=== PATIENT | female | born 1975 | race Caucasian/White ===

== ENCOUNTER 2016-11-24 11:49 | Emergency (ER) | payer BC, OTHER ==
[2016-11-24 12:10] VITALS: BP 139/79; PULSE 93; RESP 20; TEMP 97.9
[2016-11-24] MEDS ORDERED: PROPARACAINE 0.5% OPHTH DROPS 15 ML BTL BOTH EYES STA (12:19)
[2016-11-24] MEDS ORDERED: IBUPROFEN 800 MG TAB PO STA (12:21)
[2016-11-24] MEDS ORDERED: DIPH,PERTUS(ACELL)TETVAC-LF 0.5 ML VIAL IM ONE (12:22)
--- NOTE | 2016-11-24 12:27 | ED ---
Eye Problem HPI - General Chief complaint: Eye Problems Stated complaint: EYE PROBLEM BOTH EYES PAIN Time Seen by Provider: 11/24/16 12:12 Source: patient Mode of arrival: wheelchair Limitations: no limitations - History of Present Illness Initial comments: Patient is a 40-year-old white female presenting to the emergency department with complaints of bilateral eye pain and a scratchy feeling to both her eyes. Patient states she was wearing contacts yesterday and felt her eyes were dry. When she took her contacts out yesterday her eyes started watering and light irritated both her eyes. Patient denies purulent eye discharge. Patient denies sick contacts. Patient denies treatment prior to arrival. MD chief complaint: eye pain, eye redness, vision change Onset Description: gradual Location: both eyes Place: home If Injury: none Eye Symptoms: pain, blurry vision, photophobia (Consensual) Severity: moderate Severity scale (1-10): 5 If Pain, Quality: sharp Consistency: constant Context: contact lens use Associated Symptoms: none Treatments Prior to Arrival: none, removed contact lens - Related Data Patient Tetanus UTD: No Home Medications Medication Instructions Recorded Confirmed FLUoxetine HCL [PROzac] 20 mg PO DAILY 11/01/13 05/06/14 Previous Rx's Medication Instructions Recorded Tobramycin 0.3% Ophth Soln [Tobrex 2 drop BOTH EYES Q4H #1 bottle 11/24/16 0.3% Ophth Soln] Allergies Allergy/AdvReac Type Severity Reaction Status Date / Time No Known Allergies Allergy Verified 11/24/16 12:42 Review of Systems ROS Statement: Those systems with pertinent positive or pertinent negative responses have been documented in the HPI. ROS Other: All systems not noted in ROS Statement are negative. Past Medical History Past Medical History: Hypertension Additional Past Medical History / Comment(s): back pain, left leg numbness. History of Any Multi-Drug Resistant Organisms: None Reported Past Surgical History: Back Surgery, Bariatric Surgery Additional Past Surgical History / Comment(s): Back surgery 04/01/13. RY 07/05/13 Past Anesthesia/Blood Transfusion Reactions: No Reported Reaction Past Psychological History: Anxiety, Depression Smoking Status: Never smoker Past Alcohol Use History: None Reported, Rare Past Drug Use History: None Reported General Exam Limitations: no limitations General appearance: alert, anxious Head exam: Present: atraumatic, normocephalic, normal inspection Eye exam: Present: PERRL, EOMI, scleral icterus, conjunctival injection. Absent : nystagmus, periorbital swelling, periorbital tenderness Expanded Pupils: Regular, Round: Bilateral, Reactive: Bilateral Sclera/Conjunctival: Injection: Bilateral, Exudate: Bilateral (Watery) Visual acuity (R) = 20/: 0 (Patient's eyes are watery) Visual acuity (L) = 20/: 0 (Patient's eyes are watery) ENT exam: Present: normal exam, mucous membranes moist, TM's normal bilaterally , normal external ear exam Neck exam: Present: normal inspection, full ROM. Absent: tenderness, meningismus, lymphadenopathy Respiratory exam: Present: normal lung sounds bilaterally. Absent: respiratory distress, wheezes, rales, rhonchi, stridor Cardiovascular Exam: Present: regular rate, normal rhythm, normal heart sounds. Absent: systolic murmur, diastolic murmur, rubs, gallop, clicks GI/Abdominal exam: Present: soft, normal bowel sounds. Absent: distended, tenderness, guarding, rebound, rigid Back exam: Present: normal inspection, full ROM Neurological exam: Present: alert, oriented X3, normal gait, other (No focal deficits noted) Psychiatric exam: Present: normal affect, normal mood Skin exam: Present: warm, dry, intact, normal color. Absent: rash Course Vital Signs 11/24/16 12:08 Temperature 97.9 F Pulse Rate 93 Respiratory 20 Rate Blood Pressure 139/79 O2 Sat by Pulse 98 Oximetry Procedures - Procedures Initial comment: Procainamide 2 drops applied to bilateral eyes followed by fluorescent stain. Branch lamp with no evidence of obvious uptake. Patient did feel immediate relief of "scratchy feeling." Medical Decision Making - Medical Decision Making Bilateral eye photophobia and irritation relieved with procainamide suspect secondary to corneal abrasion and conjunctivitis. Patient placed on tobramycin eyedrops and instructed to follow-up with pharmacy informatics manager in next 24 hours. Patient instructed to return to the emergency department with any new or worsening symptoms. Patient agrees with treatment plan. Discharge instructions and return parameters reviewed. Disposition Clinical Impression: Corneal abrasion, Conjunctivitis Disposition: HOME SELF-CARE Condition: Good Instructions: Corneal Abrasion (ED) Additional Instructions: Continue tobramycin eyedrops every 4 hours 2 drops to each eye 3-5 days or as directed by pharmacy informatics manager. Continue Motrin for pain. Please follow-up with pharmacy informatics manager in next 24 hours. Please return to the emergency department with new or worsening symptoms. Prescriptions: Tobramycin 0.3% Ophth Soln [Tobrex 0.3% Ophth Soln] 2 drop BOTH EYES Q4H #1 bottle Referrals: Anson Genao DO [Primary Care Provider] - 1-2 days Diana Gill MD [STAFF PHYSICIAN] - 1-2 days Time of Disposition: 12:53
[2016-11-24] MEDS ORDERED: TOBRAMYCIN 0.3% OPHTH DROPS 5 ML BTL BOTH EYES SCH (12:45)
== END 2016-11-24 13:02 | disposition home or self-care (01) ==
LOC: EC 11:49
DX: S05.02XA Injury of conjunctiva and corneal abrasion without foreign body, left eye, initial encounter (principal); S05.01XA Injury of conjunctiva and corneal abrasion without foreign body, right eye, initial encounter; H10.9 Unspecified conjunctivitis; F32.9 Major depressive disorder, single episode, unspecified; F41.9 Anxiety disorder, unspecified; Z23 Encounter for immunization; Z79.899 Other long term (current) drug therapy; X58.XXXA Exposure to other specified factors, initial encounter; Y92.009 Unspecified place in unspecified non-institutional (private) residence as the place of occurrence of the external cause; Y93.89 Activity, other specified
CPT/HCPCS: 90471; 90715; 99283

== ENCOUNTER 2018-07-29 20:43 | Observation (INO) | payer BC, OTHER ==
[2018-07-29 21:16] LABS: Glucose,Whole Blood 100 mg/dL (75-99)
[2018-07-29] MEDS ORDERED: IOPAMIDOL-300 CONTRAST 30 ML VIAL (ORAL USE) PO PRN (22:24)
[2018-07-29] MEDS ORDERED: SODIUM CHLORIDE 0.9% 1,000 ML IV STA (22:24)
[2018-07-29] MEDS ORDERED: PANTOPRAZOLE 40 MG/10 ML VIAL IVP STA (22:24)
[2018-07-29] MEDS ORDERED: MORPHINE SULFATE 4 MG/ML SYRINGE IV STA (22:24)
[2018-07-29] MEDS ORDERED: SODIUM CHLORIDE 0.9% 500 ML 500 ML IV STA (22:24)
--- NOTE | 2018-07-29 22:27 | ED ---
General Adult HPI - General Chief complaint: Abdominal Pain Stated complaint: abd pain Time Seen by Provider: 07/29/18 22:08 Source: patient, family, RN notes reviewed Limitations: no limitations - History of Present Illness Initial comments: Patient is a pleasant 42-year-old female presenting to the emergency Department with complaints of abdominal discomfort. Symptoms started 2-3 days ago. Patient did have one episode of emesis 2 days ago. Patient has continued nausea. No constipation or diarrhea. Discomfort is diffuse. Discomfort did start in the right lower abdomen. No back pain. No history of chronic abdominal pain. Patient does have history of gastric bypass surgery approximately 3 years ago. - Related Data Home Medications Medication Instructions Recorded Confirmed FLUoxetine HCL [PROzac] 60 mg PO DAILY 11/01/13 07/29/18 Ergocalciferol (Vitamin D2) 50,000 unit PO TU 07/29/18 07/29/18 [Drisdol] Ferrous Sulfate [Feosol] 325 mg PO DAILY 07/29/18 07/29/18 Metoprolol Succinate [Toprol XL] 25 mg PO HS 07/29/18 07/29/18 Allergies Allergy/AdvReac Type Severity Reaction Status Date / Time No Known Allergies Allergy Verified 07/29/18 23:05 Review of Systems ROS Statement: Those systems with pertinent positive or pertinent negative responses have been documented in the HPI. ROS Other: All systems not noted in ROS Statement are negative. Constitutional: Denies: fever Eyes: Denies: eye pain ENT: Denies: ear pain Respiratory: Denies: cough Cardiovascular: Denies: chest pain Endocrine: Denies: fatigue Gastrointestinal: Reports: abdominal pain, nausea. Denies: diarrhea, constipation Genitourinary: Denies: dysuria Musculoskeletal: Denies: back pain Skin: Denies: rash Neurological: Denies: weakness Past Medical History Past Medical History: Atrial Fibrillation, Hypertension Additional Past Medical History / Comment(s): back pain, left leg numbness. hypoglycemia History of Any Multi-Drug Resistant Organisms: None Reported Past Surgical History: Back Surgery, Bariatric Surgery Additional Past Surgical History / Comment(s): Back surgery 04/01/13. RY 07/05/13 Past Anesthesia/Blood Transfusion Reactions: No Reported Reaction Past Psychological History: Anxiety, Depression Smoking Status: Never smoker Past Alcohol Use History: None Reported, Rare Past Drug Use History: None Reported General Exam Limitations: no limitations General appearance: alert, in no apparent distress Head exam: Present: atraumatic Eye exam: Present: normal appearance, PERRL ENT exam: Present: normal oropharynx Neck exam: Present: normal inspection Respiratory exam: Present: normal lung sounds bilaterally Cardiovascular Exam: Present: regular rate, normal rhythm Expanded Peripheral pulses: 2+: Dorsalis Pedis (R), Dorsalis Pedis (L) GI/Abdominal exam: Present: soft, tenderness (Moderate diffuse tenderness, the patient is somewhat more tender in the right lower quadrant), normal bowel sounds. Absent: distended, guarding, rebound, rigid, pulsatile mass Extremities exam: Present: normal inspection. Absent: pedal edema, calf tenderness Neurological exam: Present: alert Psychiatric exam: Present: normal affect, normal mood Skin exam: Present: normal color Course Vital Signs 07/29/18 20:54 Temperature 98.7 F Pulse Rate 93 Respiratory 20 Rate Blood Pressure 152/106 O2 Sat by Pulse 98 Oximetry EKG Findings - EKG Comments: EKG Findings:: Normal sinus rhythm at 80. GA 134. QRS 94. QT 404. QTC 465. Normal axis. Normal QRS. No acute ST change. Medical Decision Making - Medical Decision Making Patient reevaluated and resting comfortably in bed. Patient states symptoms have improved. Patient and family updated on results and plan. Case was discussed in detail with Dr. Nash, covering for Dr. Cuellar, who will admit with plans for surgery in the morning. He does recommend antibiotics. Patient does not meet sepsis criteria at this time. - Lab Data Result diagrams: 07/29/18 22:33 07/29/18 22:33 Lab Results 07/29/18 07/29/18 07/29/18 Range/Units 21:13 22:33 22:33 WBC 8.9 (3.8-10.6) k/uL RBC 4.79 (3.80-5.40) m/uL Hgb 12.9 (11.4-16.0) gm/dL Hct 40.0 (34.0-46.0) % MCV 83.4 (80.0-100.0) fL MCH 26.9 (25.0-35.0) pg MCHC 32.3 (31.0-37.0) g/dL RDW 15.4 (11.5-15.5) % Plt Count 421 (150-450) k/uL Neutrophils % 65 % Lymphocytes % 22 % Monocytes % 7 % Eosinophils % 3 % Basophils % 0 % Neutrophils # 5.8 (1.3-7.7) k/uL Lymphocytes # 2.0 (1.0-4.8) k/uL Monocytes # 0.7 (0-1.0) k/uL Eosinophils # 0.3 (0-0.7) k/uL Basophils # 0.0 (0-0.2) k/uL PT (9.0-12.0) sec INR (<1.2) APTT (22.0-30.0) sec Sodium 139 (137-145) mmol/L Potassium 4.3 (3.5-5.1) mmol/L Chloride 110 H (98-107) mmol/L Carbon Dioxide 21 L (22-30) mmol/L Anion Gap 8 mmol/L BUN 12 (7-17) mg/dL Creatinine 0.69 (0.52-1.04) mg/dL Est GFR (CKD-EPI)AfAm >90 (>60 ml/min/1.73 sqM) Est GFR (CKD-EPI)NonAf >90 (>60 ml/min/1.73 sqM) Glucose 99 (74-99) mg/dL POC Glucose (mg/dL) 100 H (75-99) mg/dL POC Glu Marriage Counselor ID [place] Calcium 9.4 (8.4-10.2) mg/dL Total Bilirubin 0.5 (0.2-1.3) mg/dL AST 20 (14-36) U/L ALT 25 (9-52) U/L Alkaline Phosphatase 61 (38-126) U/L Total Protein 6.8 (6.3-8.2) g/dL Albumin 3.8 (3.5-5.0) g/dL Amylase 39 (30-110) U/L Lipase 97 (23-300) U/L 07/29/18 Range/Units 22:33 WBC (3.8-10.6) k/uL RBC (3.80-5.40) m/uL Hgb (11.4-16.0) gm/dL Hct (34.0-46.0) % MCV (80.0-100.0) fL MCH (25.0-35.0) pg MCHC (31.0-37.0) g/dL RDW (11.5-15.5) % Plt Count (150-450) k/uL Neutrophils % % Lymphocytes % % Monocytes % % Eosinophils % % Basophils % % Neutrophils # (1.3-7.7) k/uL Lymphocytes # (1.0-4.8) k/uL Monocytes # (0-1.0) k/uL Eosinophils # (0-0.7) k/uL Basophils # (0-0.2) k/uL PT 9.9 (9.0-12.0) sec INR 0.9 (<1.2) APTT 24.8 (22.0-30.0) sec Sodium (137-145) mmol/L Potassium (3.5-5.1) mmol/L Chloride (98-107) mmol/L Carbon Dioxide (22-30) mmol/L Anion Gap mmol/L BUN (7-17) mg/dL Creatinine (0.52-1.04) mg/dL Est GFR (CKD-EPI)AfAm (>60 ml/min/1.73 sqM) Est GFR (CKD-EPI)NonAf (>60 ml/min/1.73 sqM) Glucose (74-99) mg/dL POC Glucose (mg/dL) (75-99) mg/dL POC Glu Marriage Counselor ID Calcium (8.4-10.2) mg/dL Total Bilirubin (0.2-1.3) mg/dL AST (14-36) U/L ALT (9-52) U/L Alkaline Phosphatase (38-126) U/L Total Protein (6.3-8.2) g/dL Albumin (3.5-5.0) g/dL Amylase (30-110) U/L Lipase (23-300) U/L - Radiology Data Radiology results: report reviewed (Computed tomography scan of the abdomen pelvis is positive for acute appendicitis, appendix measures 1 cm.) Disposition Clinical Impression: Acute appendicitis Disposition: ADMITTED IP TO THIS [facility] Is patient prescribed a controlled substance at d/c from ED?: No Referrals: Anson Genao DO [Primary Care Provider] - 1-2 days Decision Time: 00:02
[2018-07-29 22:48] LABS: Basophils % (A) 0 %; Eosinophils # (A) 0.3 k/uL (0-0.7); Eosinophils % (A) 3 %; HGB 12.9 gm/dL (11.4-16.0); Lymphocytes % (A) 22 %; MCH 26.9 pg (25.0-35.0); MCHC 32.3 g/dL (31.0-37.0); MCV 83.4 fL (80.0-100.0); Mean Platelet Volume 6.2; Monocytes # (A) 0.7 k/uL (0-1.0); Monocytes % (A) 7 %; Neutrophils # (A) 5.8 k/uL (1.3-7.7); Neutrophils % (A) 65 %; Platelet Count 421 k/uL (150-450); RBC 4.79 m/uL (3.80-5.40); RDW 15.4 % (11.5-15.5); WBC 8.9 k/uL (3.8-10.6)
[2018-07-29 22:57] LABS: INR 0.9 (<1.2); Partial Thromboplastin Time 24.8 sec (22.0-30.0); Prothrombin Time 9.9 sec (9.0-12.0)
[2018-07-29 23:01] LABS: ALT 25 U/L (9-52); AST 20 U/L (14-36); Albumin 3.8 g/dL (3.5-5.0); Alkaline Phosphatase 61 U/L (38-126); Amylase 39 U/L (30-110); Anion Gap 8 mmol/L; Blood Urea Nitrogen 12 mg/dL (7-17); Calcium 9.4 mg/dL (8.4-10.2); Carbon Dioxide 21 mmol/L (22-30); Chloride 110 mmol/L (98-107); Glucose 99 mg/dL (74-99); Lipase 97 U/L (23-300); Potassium 4.3 mmol/L (3.5-5.1); Sodium 139 mmol/L (137-145); Total Bilirubin 0.5 mg/dL (0.2-1.3); Total Protein 6.8 g/dL (6.3-8.2)
[2018-07-29] MEDS: ONDANSETRON 4 MG/2 ML VIAL IVP STA (23:06)
--- NOTE | 2018-07-29 23:49 | CT ---
EXAM: CT Abdomen and Pelvis With Intravenous Contrast CLINICAL HISTORY: ITS.REASON CT Reason: abdominal pain, bariatric protocol TECHNIQUE: Axial computed tomography images of the abdomen and pelvis with intravenous contrast. CTDI is 16 mGy and DLP is 916 mGy-cm. This CT exam was performed using one or more of the following dose reduction techniques: automated exposure control, adjustment of the mA and/or kV according to patient size, and/or use of iterative reconstruction technique. COMPARISON: No relevant prior studies available. FINDINGS: Lung bases: Unremarkable. No mass. No consolidation. ABDOMEN: Liver: Unremarkable. No mass. Gallbladder and bile ducts: No abnormal ductal dilation or stones. Pancreas: Unremarkable. No mass. No ductal dilation. Spleen: Unremarkable. No splenomegaly. Adrenals: Unremarkable. No mass. Kidneys and ureters: Unremarkable. No solid mass. No hydronephrosis. Stomach and bowel: No obstruction. No mucosal thickening. PELVIS: Appendix: Acute appendicitis. Appendix measures approximately 1 cm. Bladder: Unremarkable. No mass. Reproductive: Unremarkable as visualized. ABDOMEN and PELVIS: Intraperitoneal space: Unremarkable. No free air. No significant fluid collection. Bones/joints: No acute fracture. No dislocation. Soft tissues: Unremarkable. Vasculature: No abdominal aortic aneurysm. Lymph nodes: Unremarkable. No enlarged lymph nodes. IMPRESSION: Acute appendicitis. Appendix measures approximately 1 cm. <MYCVCSECTION> [employer] 07/29/18 23:55 Verify Receipt Verified receipt with LYNN Sheppard in the ER for Dr. Guido on 07/29 23:54 (-05:00)
[2018-07-30] MEDS ORDERED: PIPERACILLIN-TAZOBACTAM 3.375 GM in SODIUM CHLORIDE 0.9% 100 ML IVPB STA ×2
[2018-07-30] MEDS ORDERED: NALOXONE 0.4 MG/ML 1 ML VIAL IV PRN (00:02)
[2018-07-30] MEDS ORDERED: ONDANSETRON 4 MG/2 ML VIAL IVP PRN (00:02)
[2018-07-30] MEDS: SODIUM CHLORIDE 0.9% 1,000 ML IV SCH ×3 (00:14→18:02)
[2018-07-30] MEDS: MORPHINE SULFATE 4 MG/ML SYRINGE IV PRN ×3 (00:16→08:19)
[2018-07-30] MEDS ORDERED: ACETAMINOPHEN TAB 325 MG TAB PO STA (01:07)
[2018-07-30 01:14] LABS: Appearance,Urine Cloudy (Clear); Bilirubin,Urine Negative (Negative); Blood,Urine Large (Negative); Color,Urine Yellow; Glucose,Urine (UA) Negative (Negative); Ketones,Urine Negative (Negative); Leukocyte Esterase,Urine Small (Negative); Mucus,Urine Few /hpf; Nitrite,Urine Negative (Negative); PH, Urine 5.5 (5.0-8.0); Protein,Urine Trace (Negative); RBC,Urine >182 /hpf (0-5); Specific Gravity,Urine 1.018 (1.001-1.035); Squamous Epithelial Cell,Urine 3 /hpf (0-4); WBC,Urine 19 /hpf (0-5)
[2018-07-30] MEDS: PANTOPRAZOLE 40 MG/10 ML VIAL IV SCH (10:53)
[2018-07-30] MEDS: PIPERACILLIN-TAZOBACTAM 3.375 GM in SODIUM CHLORIDE 0.9% 100 ML IVPB SCH ×2 (10:53→18:02)
--- NOTE | 2018-07-30 11:28 | P.GSHP ---
<Yue Jara A - Last Filed: 07/30/18 11:23> History of Present Illness H&P Date: 07/30/18 Chief Complaint: abdominal pain CHIEF COMPLAINT: Abdominal pain HISTORY OF PRESENT ILLNESS: 42-year-old female who presented to the emergency room due to abdominal pain. Patient reports she began having right lower quadrant pain on Friday. She also reports an episode of vomiting on Friday but no further episodes of emesis since that time. She does report continued nausea. She states she waited a couple days at home to see if the pain would subside but the pain persisted and she decided to come to the emergency room for further evaluation. PAST MEDICAL HISTORY: See list. PAST SURGICAL HISTORY: See list. MEDICATIONS: See list. ALLERGIES: See list. SOCIAL HISTORY: No illicit drug use. REVIEW OF SYSTEMS: CONSTITUTIONAL: Denies fever or chills. HEENT: Denies blurred vision, vision changes, or eye pain. Denies hemoptysis ENDOCRINE: Denies heat or cold intolerance. CARDIOVASCULAR: Denies chest pain or pressure. RESPIRATORY: No shortness of breath. GASTROINTESTINAL: Reports right lower quadrant abdominal pain. Reports nausea. Reports episode of emesis. NEURO: Denies history of seizures. PSYCH: No depression or suicidal ideation HEMATOLOGIC: Denies bleeding disorders. LYMPHATIC: The patient denies any lumps and bumps around the neck. GENITOURINARY: Denies any blood in urine or increased urinary frequency. MUSCULOSKELETAL: Denies myalgias. Denies joint swelling. Denies decreased range of motion beyond patients baseline. SKIN: Denies pruitis. Denies rash. PHYSICAL EXAM: VITAL SIGNS: Currently stable. GENERAL: Well-developed in no acute distress. HEENT: No sclera icterus. Extraocular movements grossly intact. Moist buccal mucosa. Head is atraumatic, normocephalic. Hears conversational speech. No nasal drainage. NECK: Supple without lymphadenopathy. CHEST: Non-labored respirations and equal bilateral excursions. CARDIOVASCULAR: Regular rate with regular rhythm. Palpable 2+ radial pulses. ABDOMEN: Soft. Nondistended. Pain upon palpation of right lower quadrant. MUSCULOSKELETAL: No clubbing, cyanosis or edema. NEUROLOGIC: No focal or lateralizing signs. Cranial nerves II through XII grossly intact. PSYCH: Appropriate affect. Alert and oriented to person, place and time. SKIN: Well perfused. Good skin turgor. ASSESSMENT: 1. Right lower quadrant abdominal pain 2. Acute appendicitis PLAN: 1. Nothing by mouth 2. Continue Zosyn 3. Patient scheduled for laparoscopic appendectomy today with Dr. Carter Nurse practitioner note has been reviewed by physician. Signing provider agrees with the documented findings, assessment, and plan of care. Past Medical History Past Medical History: Atrial Fibrillation, Hypertension Additional Past Medical History / Comment(s): back pain, left leg numbness. hypoglycemia History of Any Multi-Drug Resistant Organisms: None Reported Past Surgical History: Back Surgery, Bariatric Surgery Additional Past Surgical History / Comment(s): Back surgery 04/01/13. RY 07/05/13 Past Anesthesia/Blood Transfusion Reactions: No Reported Reaction Past Psychological History: Anxiety, Depression Smoking Status: Never smoker Past Alcohol Use History: None Reported, Rare Past Drug Use History: None Reported - Past Family History Mother Family Medical History: Thyroid Disorder Father History Unknown: Yes Medications and Allergies Home Medications Medication Instructions Recorded Confirmed Type FLUoxetine HCL [PROzac] 60 mg PO DAILY 11/01/13 07/29/18 History Ergocalciferol (Vitamin D2) 50,000 unit PO TU 07/29/18 07/29/18 History [Drisdol] Ferrous Sulfate [Feosol] 325 mg PO DAILY 07/29/18 07/29/18 History Metoprolol Succinate [Toprol XL] 25 mg PO HS 07/29/18 07/29/18 History Allergies Allergy/AdvReac Type Severity Reaction Status Date / Time No Known Allergies Allergy Verified 07/29/18 23:05 Surgical - Exam Vital Signs Temp Pulse Resp BP Pulse Ox 98.7 F 93 20 152/106 98 07/29/18 20:54 07/29/18 20:54 07/29/18 20:54 07/29/18 20:54 07/29/18 20:54 Results - Labs 07/29/18 22:33 07/29/18 22:33 Abnormal Lab Results - Last 24 Hours (Table) 07/29/18 07/29/18 07/29/18 Range/Units 21:13 22:33 22:50 Chloride 110 H (98-107) mmol/L Carbon Dioxide 21 L (22-30) mmol/L POC Glucose (mg/dL) 100 H (75-99) mg/dL Plasma Lactic Acid Franklyn (0.7-2.0) mmol/L Urine Appearance Cloudy H (Clear) Urine Protein Trace H (Negative) Urine Blood Large H (Negative) Ur Leukocyte Esterase Small H (Negative) Urine RBC >182 H (0-5) /hpf Urine WBC 19 H (0-5) /hpf Urine Mucus Few H (None) /hpf 07/30/18 Range/Units 00:34 Chloride (98-107) mmol/L Carbon Dioxide (22-30) mmol/L POC Glucose (mg/dL) (75-99) mg/dL Plasma Lactic Acid Franklyn 0.6 L (0.7-2.0) mmol/L Urine Appearance (Clear) Urine Protein (Negative) Urine Blood (Negative) Ur Leukocyte Esterase (Negative) Urine RBC (0-5) /hpf Urine WBC (0-5) /hpf Urine Mucus (None) /hpf Diabetes panel 07/29/18 Range/Units 22:33 Sodium 139 (137-145) mmol/L Potassium 4.3 (3.5-5.1) mmol/L Chloride 110 H (98-107) mmol/L Carbon Dioxide 21 L (22-30) mmol/L BUN 12 (7-17) mg/dL Creatinine 0.69 (0.52-1.04) mg/dL Glucose 99 (74-99) mg/dL Calcium 9.4 (8.4-10.2) mg/dL AST 20 (14-36) U/L ALT 25 (9-52) U/L Alkaline Phosphatase 61 (38-126) U/L Total Protein 6.8 (6.3-8.2) g/dL Albumin 3.8 (3.5-5.0) g/dL Calcium panel 07/29/18 Range/Units 22:33 Calcium 9.4 (8.4-10.2) mg/dL Albumin 3.8 (3.5-5.0) g/dL Pituitary panel 07/29/18 Range/Units 22:33 Sodium 139 (137-145) mmol/L Potassium 4.3 (3.5-5.1) mmol/L Chloride 110 H (98-107) mmol/L Carbon Dioxide 21 L (22-30) mmol/L BUN 12 (7-17) mg/dL Creatinine 0.69 (0.52-1.04) mg/dL Glucose 99 (74-99) mg/dL Calcium 9.4 (8.4-10.2) mg/dL Adrenal panel 07/29/18 Range/Units 22:33 Sodium 139 (137-145) mmol/L Potassium 4.3 (3.5-5.1) mmol/L Chloride 110 H (98-107) mmol/L Carbon Dioxide 21 L (22-30) mmol/L BUN 12 (7-17) mg/dL Creatinine 0.69 (0.52-1.04) mg/dL Glucose 99 (74-99) mg/dL Calcium 9.4 (8.4-10.2) mg/dL Total Bilirubin 0.5 (0.2-1.3) mg/dL AST 20 (14-36) U/L ALT 25 (9-52) U/L Alkaline Phosphatase 61 (38-126) U/L Total Protein 6.8 (6.3-8.2) g/dL Albumin 3.8 (3.5-5.0) g/dL <Toni Carter - Last Filed: 07/30/18 12:06> History of Present Illness As above. Patient with three-day history of right lower quadrant pain. CAT scan reviewed and does show appendicitis. Patient still having mild tenderness right lower quadrant. We'll proceed with laparoscopic, possible open appendectomy. Risks of bleeding, infection, abscess, bladder and bowel injury, conversion to an open procedure reviewed. She understands and wishes to proceed. Surgical - Exam Vital Signs Temp Pulse Resp BP Pulse Ox 98.7 F 93 20 152/106 98 07/29/18 20:54 07/29/18 20:54 07/29/18 20:54 07/29/18 20:54 07/29/18 20:54 Results - Labs 07/29/18 22:33 07/29/18 22:33 Abnormal Lab Results - Last 24 Hours (Table) 07/29/18 07/29/18 07/29/18 Range/Units 21:13 22:33 22:50 Chloride 110 H (98-107) mmol/L Carbon Dioxide 21 L (22-30) mmol/L POC Glucose (mg/dL) 100 H (75-99) mg/dL Plasma Lactic Acid Franklyn (0.7-2.0) mmol/L Urine Appearance Cloudy H (Clear) Urine Protein Trace H (Negative) Urine Blood Large H (Negative) Ur Leukocyte Esterase Small H (Negative) Urine RBC >182 H (0-5) /hpf Urine WBC 19 H (0-5) /hpf Urine Mucus Few H (None) /hpf 07/30/18 Range/Units 00:34 Chloride (98-107) mmol/L Carbon Dioxide (22-30) mmol/L POC Glucose (mg/dL) (75-99) mg/dL Plasma Lactic Acid Franklyn 0.6 L (0.7-2.0) mmol/L Urine Appearance (Clear) Urine Protein (Negative) Urine Blood (Negative) Ur Leukocyte Esterase (Negative) Urine RBC (0-5) /hpf Urine WBC (0-5) /hpf Urine Mucus (None) /hpf Diabetes panel 07/29/18 Range/Units 22:33 Sodium 139 (137-145) mmol/L Potassium 4.3 (3.5-5.1) mmol/L Chloride 110 H (98-107) mmol/L Carbon Dioxide 21 L (22-30) mmol/L BUN 12 (7-17) mg/dL Creatinine 0.69 (0.52-1.04) mg/dL Glucose 99 (74-99) mg/dL Calcium 9.4 (8.4-10.2) mg/dL AST 20 (14-36) U/L ALT 25 (9-52) U/L Alkaline Phosphatase 61 (38-126) U/L Total Protein 6.8 (6.3-8.2) g/dL Albumin 3.8 (3.5-5.0) g/dL Calcium panel 07/29/18 Range/Units 22:33 Calcium 9.4 (8.4-10.2) mg/dL Albumin 3.8 (3.5-5.0) g/dL Pituitary panel 07/29/18 Range/Units 22:33 Sodium 139 (137-145) mmol/L Potassium 4.3 (3.5-5.1) mmol/L Chloride 110 H (98-107) mmol/L Carbon Dioxide 21 L (22-30) mmol/L BUN 12 (7-17) mg/dL Creatinine 0.69 (0.52-1.04) mg/dL Glucose 99 (74-99) mg/dL Calcium 9.4 (8.4-10.2) mg/dL Adrenal panel 07/29/18 Range/Units 22:33 Sodium 139 (137-145) mmol/L Potassium 4.3 (3.5-5.1) mmol/L Chloride 110 H (98-107) mmol/L Carbon Dioxide 21 L (22-30) mmol/L BUN 12 (7-17) mg/dL Creatinine 0.69 (0.52-1.04) mg/dL Glucose 99 (74-99) mg/dL Calcium 9.4 (8.4-10.2) mg/dL Total Bilirubin 0.5 (0.2-1.3) mg/dL AST 20 (14-36) U/L ALT 25 (9-52) U/L Alkaline Phosphatase 61 (38-126) U/L Total Protein 6.8 (6.3-8.2) g/dL Albumin 3.8 (3.5-5.0) g/dL
[2018-07-30] MEDS ORDERED: IV FLUID CONTINUATION 1,000 ML IV ONE (11:58)
[2018-07-30] MEDS ORDERED: HEPARIN SODIUM,PORCINE 5,000 UNIT/ML 1 ML VIAL SQ ONE (12:00)
[2018-07-30] MEDS: ONDANSETRON 4 MG/2 ML VIAL IVP STA (12:42)
[2018-07-30] MEDS ORDERED: fentaNYL (PF) 50 MCG/ML 2 ML AMP IV ONE (12:42)
[2018-07-30] MEDS ORDERED: DEXAMETHASONE SOD PHOS (MDV) 100 MG/10 ML VIAL IV ONE (12:42)
[2018-07-30] MEDS ORDERED: NEOSTIGMINE 1 MG/ML 10 ML VIAL ONE (13:11)
[2018-07-30] MEDS ORDERED: MIDAZOLAM 2 MG/2 ML VIAL ONE (13:11)
[2018-07-30] MEDS ORDERED: SUCCINYLCHOLINE CHLORIDE 100 MG/5 ML SYR IV ONE (13:11)
[2018-07-30] MEDS ORDERED: ROCURONIUM BROMIDE 10 MG/ML 10 ML VIAL IV ONE (13:11)
[2018-07-30] MEDS ORDERED: HYDROmorphone (PF) 1 MG/ML ONE (13:11)
[2018-07-30] MEDS ORDERED: GLYCOPYRROLATE 0.2 MG/ML 2 ML VIAL ONE (13:11)
[2018-07-30] MEDS ORDERED: fentaNYL (PF) 50 MCG/ML 2 ML AMP ONE (13:11)
[2018-07-30] MEDS ORDERED: PROPOFOL 10 MG/ML 20 ML VIAL IV ONE (13:11)
[2018-07-30] MEDS ORDERED: LIDOCAINE 1% INJ 10MG/ML (20 ML MDV) ONE (13:11)
[2018-07-30] MEDS ORDERED: KETOROLAC 30 MG/ML 1 ML VIAL ONE (13:11)
[2018-07-30] MEDS ORDERED: BUPIVACAIN-EPI 0.5%-1:200,000 30 ML VIAL SQ ONE (13:38)
[2018-07-30] MEDS ORDERED: LACTATED RINGERS 1,000 ML IV ONE (14:07)
[2018-07-30] MEDS ORDERED: HYDROcodone/APAP 5-325MG 1 EACH TAB PO PRN (14:13)
--- NOTE | 2018-07-30 14:15 | P.OP ---
Date of Procedure: 07/30/18 Procedure(s) Performed: PREOPERATIVE DIAGNOSIS: Acute appendicitis POSTOPERATIVE DIAGNOSIS: Same PROCEDURE: Laparoscopic appendectomy SURGEON: Raul EBL: Total ANESTHESIA: General COMPLICATIONS: None OPERATIVE PROCEDURE: The patient was brought and placed on the operating table in the supine position. The patient was placed under general anesthesia. The abdomen was prepped and draped in the usual sterile fashion. A small vertical infraumbilical incision was made. The fascia was retracted anteriorly with Anabel forceps. The Veress needle was advanced into the perineal cavity. The saline drop test was normal. Insufflation took place to 15 mmHg. A 5 mm trocar was then placed. An additional 5 mm suprapubic trocar was placed under direct visualization as well as a 12 mm left lower quadrant trocar under direct visualization. The appendix was inspected. It was acutely inflamed. The mesoappendix was dissected. The base of the appendix was divided using a linear 45 mm intestinal stapler. The mesentery itself was divided using the 12 mm clipper and the calderon load stapler. The area was then irrigated. No further purulence or bleeding was seen. The appendix was brought out of the peritoneal cavity through the left lower quadrant trocar site using an Endo Catch bag. The fascia at the 12 mm site was closed using a Yevgeniy-Royer 0 Vicryl stitch. The skin at all 3 sites was closed using 4-0 Monocryl sutures. Skin glue was then applied. DISPOSITION: Stable to recovery room
[2018-07-30] MEDS: HEPARIN SODIUM,PORCINE 5,000 UNIT/ML 1 ML VIAL SQ SCH (18:02)
[2018-07-30] MEDS: KETOROLAC 30 MG/ML 1 ML VIAL IVP SCH ×2 (18:02→23:59)
[2018-07-30] MEDS ORDERED: METOPROLOL SUCCINATE (ER) 25 MG TAB.ER.24H PO SCH (21:00)
[2018-07-30] MEDS: FLUoxetine HCL 20 MG CAP PO SCH (21:12)
[2018-07-31] MEDS: PIPERACILLIN-TAZOBACTAM 3.375 GM in SODIUM CHLORIDE 0.9% 100 ML IVPB SCH ×3 (00:11→17:10)
[2018-07-31] MEDS: SODIUM CHLORIDE 0.9% 1,000 ML IV SCH ×2 (01:20→08:43)
[2018-07-31] MEDS: KETOROLAC 30 MG/ML 1 ML VIAL IVP SCH ×2 (05:47→11:56)
[2018-07-31] MEDS: FLUoxetine HCL 20 MG CAP PO SCH (08:42)
[2018-07-31] MEDS: HEPARIN SODIUM,PORCINE 5,000 UNIT/ML 1 ML VIAL SQ SCH ×3 (08:43→17:09)
[2018-07-31] MEDS: PANTOPRAZOLE 40 MG/10 ML VIAL IV SCH (08:43)
[2018-07-31 14:27] VITALS: BP 101/64; PULSE 78; RESP 17; TEMP 98.1
--- NOTE | 2018-07-31 17:24 | P.DS ---
Providers Date of admission: 07/30/18 00:03 Expected date of discharge: 07/31/18 Attending physician: Toni Carter Primary care physician: Anson Genao [facility] Course: Patient was admitted with acute appendicitis. Underwent laparoscopic appendectomy yesterday afternoon. Doing well today. Pain is resolved. No fevers. She is hoping to go home today. Incisions are clean and dry. Will plan discharge today. Follow-up one week. Plan - Discharge Summary Discharge Rx Participant: Yes New Discharge Prescriptions: New Hydrocodone/Acetaminophen [[place] 5-325] 1 tab PO Q6HR PRN 3 Days #10 tab PRN Reason: Pain No Action FLUoxetine HCL [PROzac] 60 mg PO DAILY Metoprolol Succinate [Toprol XL] 25 mg PO HS Ferrous Sulfate [Feosol] 325 mg PO DAILY Ergocalciferol (Vitamin D2) [Drisdol] 50,000 unit PO Discharge Medication List FLUoxetine HCL [PROzac] 60 mg PO DAILY 11/01/13 [History] Ergocalciferol (Vitamin D2) [Drisdol] 50,000 unit PO TU 07/29/18 [History] Ferrous Sulfate [Feosol] 325 mg PO DAILY 07/29/18 [History] Metoprolol Succinate [Toprol XL] 25 mg PO HS 07/29/18 [History] Hydrocodone/Acetaminophen [[place] 5-325] 1 tab PO Q6HR PRN 3 Days #10 tab [Rx] Follow up Appointment(s)/Referral(s): Anson Genao DO [Primary Care Provider] - 1-2 days
== END 2018-07-31 18:31 | disposition home or self-care (01) ==
LOC: EC 20:43 → INTOOBSV 07-30 00:03 → 4SSUR 07-30 00:03
PROVIDERS: ADMIT Surgery; ATTEND Surgery
DX: K35.80 Unspecified acute appendicitis (principal); F32.9 Major depressive disorder, single episode, unspecified; F41.9 Anxiety disorder, unspecified; M54.9 Dorsalgia, unspecified; R20.0 Anesthesia of skin; I10 Essential (primary) hypertension; I48.91 Unspecified atrial fibrillation; Z79.899 Other long term (current) drug therapy; Z98.84 Bariatric surgery status
CPT/HCPCS: 96374; 96375; 99285; 44970; 36415 ×2; 93005; 81025 ×2; 88304; 80053; 82150; 83605; 83690; 85025; 85610; 85730; 81001; 87040; 74177; G0378 ×2; J2543 ×2; J2250; J2270 ×2; J1644 ×2; J2710; J2405 ×2; J2001; J3010; J1885 ×2; J1170; J1100; J0330; J2704; C9113 ×3; Q9967

== ENCOUNTER 2019-08-08 21:21 | Emergency (ER) | payer BC ==
[2019-08-08] MEDS ORDERED: SODIUM CHLORIDE 0.9% 1,000 ML IV STA (21:56)
[2019-08-08] MEDS ORDERED: KETOROLAC 30 MG/ML 1 ML VIAL IVP STA (21:56)
[2019-08-08] MEDS ORDERED: HYDROmorphone 1 MG/ML 1 ML SYRINGE IVP STA ×2 (21:56→23:32)
[2019-08-08] MEDS ORDERED: ONDANSETRON 4 MG/2 ML VIAL IVP STA (21:56)
[2019-08-08 22:58] LABS: Anisocytosis Slight; Basophils % (A) 1 %; Eosinophils # (A) 0.1 k/uL (0-0.7); Eosinophils % (A) 2 %; HCT 35.1 % (34.0-46.0); HGB 11.1 gm/dL (11.4-16.0); Hypochromasia Slight; Lymphocytes # (A) 1.7 k/uL (1.0-4.8); Lymphocytes % (A) 26 %; MCH 23.5 pg (25.0-35.0); MCHC 31.5 g/dL (31.0-37.0); MCV 74.6 fL (80.0-100.0); Microcytosis Slight; Monocytes # (A) 0.5 k/uL (0-1.0); Monocytes % (A) 7 %; Neutrophils # (A) 4.1 k/uL (1.3-7.7); Neutrophils % (A) 61 %; Platelet Count 445 k/uL (150-450); RBC 4.71 m/uL (3.80-5.40); RDW 16.9 % (11.5-15.5); WBC 6.7 k/uL (3.8-10.6)
[2019-08-08 23:04] LABS: ALT 14 U/L (4-34); AST 23 U/L (14-36); African American GFR (CKD) >90 (>60 ml/min/1.73 sqM); Albumin 3.8 g/dL (3.5-5.0); Alkaline Phosphatase 64 U/L (38-126); Amylase 40 U/L (30-110); Anion Gap 7 mmol/L; Blood Urea Nitrogen 8 mg/dL (7-17); Calcium 8.6 mg/dL (8.4-10.2); Carbon Dioxide 21 mmol/L (22-30); Chloride 110 mmol/L (98-107); Glucose 93 mg/dL (74-99); Non-African American GFR(CKD) >90 (>60 ml/min/1.73 sqM); Potassium 4.1 mmol/L (3.5-5.1); Sodium 138 mmol/L (137-145); Total Bilirubin 0.1 mg/dL (0.2-1.3); Total Protein 6.7 g/dL (6.3-8.2)
[2019-08-08 23:14] LABS: Appearance,Urine Cloudy (Clear); Bacteria,Urine Rare /hpf; Bilirubin,Urine Negative (Negative); Blood,Urine Large (Negative); Color,Urine Yellow; Glucose,Urine (UA) Negative (Negative); Ketones,Urine 1+ (Negative); Leukocyte Esterase,Urine Moderate (Negative); Mucus,Urine Many /hpf; Nitrite,Urine Negative (Negative); PH, Urine 5.5 (5.0-8.0); Protein,Urine 1+ (Negative); RBC,Urine >182 /hpf (0-5); Specific Gravity,Urine 1.031 (1.001-1.035); Squamous Epithelial Cell,Urine 3 /hpf (0-4); WBC,Urine 35 /hpf (0-5)
[2019-08-08 23:15] LABS: INR 0.9 (<1.2); Partial Thromboplastin Time 23.4 sec (22.0-30.0); Prothrombin Time 9.9 sec (9.0-12.0)
--- NOTE | 2019-08-09 00:24 | CT ---
EXAMINATION TYPE: CT abdomen pelvis w con DATE OF EXAM: 08/08/2019 COMPARISON: 07/29/2018 HISTORY: Bilateral Flank Pain CT DLP: 2130.30 mGycm Automated exposure control for dose reduction was used. CONTRAST: Performed with IV Contrast, patient injected with 100 mL of Isovue 300. There is mild subsegmental atelectasis at the lung bases. Heart size is normal. There is no pericardi al effusion. There is gastric bariatric surgery. Stomach is intact. Spleen is intact. Liver appears n ormal. Bile ducts are not dilated. Gallbladder appears normal. There is no pancreatic mass. There is no adrenal mass. Kidneys show satisfactory contrast opacification. There is no hydronephrosi s. Ureters are not dilated. There is no retroperitoneal adenopathy. There are multiple surgical clips in the right lower quadrant. Bladder distends smoothly. There is no inguinal hernia. There is no grupo e fluid in the pelvis. Uterus is anteverted. There is no evidence of a pelvic mass. There is no mesenteric edema. There is no ascites or free air. There is no sign of a bowel obstructio n. Lumbar vertebra have normal alignment. There is calcified posterior L5-S1 lumbar disc herniation. The re is no compression fracture. Bony pelvis is intact. IMPRESSION: No evidence of renal stone or obstruction. I do not see a cause for flank pain. Previous surgery. Mil d atelectasis at the lung bases.
[2019-08-09 00:47] VITALS: BP 137/85; PULSE 85; RESP 17; TEMP 97.8
[2019-08-09] MEDS ORDERED: CYCLOBENZAPRINE 10MG STARTER 3 TAB BTL PO STA (00:57)
[2019-08-09] MEDS ORDERED: IBUPROFEN 600 MG STARTER PACK 4 TAB BTL PO STA (00:57)
[2019-08-09] MEDS ORDERED: ACET/COD 300 MG/30 MG STARTER PACK 6 TAB BTL PO STA (00:57)
--- NOTE | 2019-08-09 00:57 | ED ---
General Adult HPI - General Chief complaint: Back Pain/Injury Stated complaint: Back pain Time Seen by Provider: 08/08/19 21:28 Source: patient Mode of arrival: ambulatory Limitations: no limitations - History of Present Illness Initial comments: 43-year-old female patient presents to the emergency department today for evaluation of abdominal and back pain. Patient states she has had this pain since Friday however pain seemed 3 worsening. Patient states the pain is from her breasts down including her back. She denies any radiation of the pain to h er legs. Denies numbness or tingling to the lower extremities. She denies any chest pain, shortness of breath, cough, or congestion. Denies any hematuria, dysuria, urinary frequency, urinary urgency. Patient is on her period currently. Denies any chance of . Patient denies any recent rash, fever, chills, nausea, vomiting, diarrhea, constipation, back pain, numbness, tingling, dizziness, weakness, headache, visual changes, or any other complaints. - Related Data Home Medications Medication Instructions Recorded Confirmed FLUoxetine HCL [PROzac] 60 mg PO DAILY 11/01/13 07/29/18 Ergocalciferol (Vitamin D2) 50,000 unit PO TU 07/29/18 07/29/18 [Drisdol] Ferrous Sulfate [Feosol] 325 mg PO DAILY 07/29/18 07/29/18 Metoprolol Succinate [Toprol XL] 25 mg PO HS 07/29/18 07/29/18 Previous Rx's Medication Instructions Recorded Hydrocodone/Acetaminophen [[place] 1 tab PO Q6HR PRN 3 Days #10 tab 07/30/18 5-325] Cyclobenzaprine [Flexeril] 10 mg PO TID #15 tab 08/09/19 Ibuprofen [Motrin] 600 mg PO Q8HR PRN #30 tab 08/09/19 Allergies Allergy/AdvReac Type Severity Reaction Status Date / Time No Known Allergies Allergy Verified 08/08/19 21:25 Review of Systems ROS Statement: Those systems with pertinent positive or pertinent negative responses have been documented in the HPI. ROS Other: All systems not noted in ROS Statement are negative. Past Medical History Past Medical History: Atrial Fibrillation, Hypertension Additional Past Medical History / Comment(s): back pain, left leg numbness. hypoglycemia History of Any Multi-Drug Resistant Organisms: None Reported Past Surgical History: Appendectomy, Back Surgery, Bariatric Surgery Additional Past Surgical History / Comment(s): Back surgery 04/01/13. RY 07/05/13 Past Anesthesia/Blood Transfusion Reactions: No Reported Reaction Past Psychological History: Anxiety, Depression Smoking Status: Never smoker Past Alcohol Use History: None Reported, Rare Past Drug Use History: None Reported - Past Family History Mother Family Medical History: Thyroid Disorder Father History Unknown: Yes General Exam Limitations: no limitations General appearance: alert, in no apparent distress, other (This is a well- developed, well-nourished adult female patient in no acute distress.) Eye exam: Present: normal appearance, PERRL, EOMI. Absent: scleral icterus, conjunctival injection, periorbital swelling ENT exam: Present: normal exam, normal oropharynx, mucous membranes moist Respiratory exam: Present: normal lung sounds bilaterally. Absent: respiratory distress, wheezes, rales, rhonchi, stridor Cardiovascular Exam: Present: regular rate, normal rhythm, normal heart sounds. Absent: systolic murmur, diastolic murmur, rubs, gallop, clicks GI/Abdominal exam: Present: soft, tenderness (lower abdominal tenderness), normal bowel sounds. Absent: distended, guarding, rebound, rigid Extremities exam: Present: normal inspection, full ROM, normal capillary refill, other (skin to the lower extremities is pink, warm, dry. Cap refills less than 3 seconds. Pedal posttibial pulses are 2+ and equal bilaterally.). Absent: tenderness, pedal edema, joint swelling, calf tenderness Neurological exam: Present: alert, oriented X3, CN II-XII intact Psychiatric exam: Present: normal affect, normal mood Skin exam: Present: warm, dry, intact, normal color. Absent: rash Course Vital Signs 08/08/19 08/09/19 21:23 00:46 Temperature 98.1 F 97.8 F Pulse Rate 87 85 Respiratory 20 17 Rate Blood Pressure 145/93 137/85 O2 Sat by Pulse 96 97 Oximetry EKG Findings - EKG Comments: EKG Findings:: EKG obtained at 2233 shows normal sinus rhythm with a ventricular rate of 72, DC interval 146, QRS duration 94, QT 434, QTC 475. Medical Decision Making - Medical Decision Making 43-year-old female patient presents to the emergency department today for evaluation of abdominal and back pain. Physical examination did reveal lower abdominal tenderness. Patient is neurovascularly intact. No concerning symptoms for cauda equina. Labs reviewed and were unremarkable. There is blood present in the urine however patient is currently on her period. CT abdomen and pelvis was obtained and showed no acute abdomen abnormalities. Did discuss findings and results with the patient. I did inform her of the herniation to the L5-S1 disc. We did discuss musculoskeletal back pain as a cause for her symptoms. She'll be given anti-inflammatories and muscle relaxer. She is instructed to follow-up with the primary care physician for recheck in 1-2 days. Return parameters discussed in detail. She verbalizes understanding and agrees with this plan. - Lab Data Result diagrams: 08/08/19 22:37 08/08/19 22:37 Lab Results 08/08/19 08/08/19 08/08/19 Range/Units 22:37 22:37 22:37 WBC 6.7 (3.8-10.6) k/uL RBC 4.71 (3.80-5.40) m/uL Hgb 11.1 L (11.4-16.0) gm/dL Hct 35.1 (34.0-46.0) % MCV 74.6 L (80.0-100.0) fL MCH 23.5 L (25.0-35.0) pg MCHC 31.5 (31.0-37.0) g/dL RDW 16.9 H (11.5-15.5) % Plt Count 445 (150-450) k/uL Neutrophils % 61 % Lymphocytes % 26 % Monocytes % 7 % Eosinophils % 2 % Basophils % 1 % Neutrophils # 4.1 (1.3-7.7) k/uL Lymphocytes # 1.7 (1.0-4.8) k/uL Monocytes # 0.5 (0-1.0) k/uL Eosinophils # 0.1 (0-0.7) k/uL Basophils # 0.0 (0-0.2) k/uL Hypochromasia Slight Anisocytosis Slight Microcytosis Slight PT 9.9 (9.0-12.0) sec INR 0.9 (<1.2) APTT 23.4 (22.0-30.0) sec Sodium (137-145) mmol/L Potassium (3.5-5.1) mmol/L Chloride (98-107) mmol/L Carbon Dioxide (22-30) mmol/L Anion Gap mmol/L BUN (7-17) mg/dL Creatinine (0.52-1.04) mg/dL Est GFR (CKD-EPI)AfAm (>60 ml/min/1.73 sqM) Est GFR (CKD-EPI)NonAf (>60 ml/min/1.73 sqM) Glucose (74-99) mg/dL Plasma Lactic Acid [place] (0.7-2.0) mmol/L Calcium (8.4-10.2) mg/dL Total Bilirubin (0.2-1.3) mg/dL AST (14-36) U/L ALT (4-34) U/L Alkaline Phosphatase (38-126) U/L Troponin I (0.000-0.034) ng/mL Total Protein (6.3-8.2) g/dL Albumin (3.5-5.0) g/dL Amylase (30-110) U/L Lipase (23-300) U/L Urine Color Yellow Urine Appearance Cloudy H (Clear) Urine pH 5.5 (5.0-8.0) Ur Specific [place] 1.031 (1.001-1.035) Urine Protein 1+ H (Negative) Urine Glucose (UA) Negative (Negative) Urine Ketones 1+ H (Negative) Urine Blood Large H (Negative) Urine Nitrite Negative (Negative) Urine Bilirubin Negative (Negative) Urine Urobilinogen 2.0 (<2.0) mg/dL Ur Leukocyte Esterase Moderate H (Negative) Urine RBC >182 H (0-5) /hpf Urine WBC 35 H (0-5) /hpf Ur Squamous Epith Cells 3 (0-4) /hpf Urine Bacteria Rare H (None) /hpf Urine Mucus Many H (None) /hpf 08/08/19 08/08/19 08/08/19 Range/Units 22:37 22:37 22:37 WBC (3.8-10.6) k/uL RBC (3.80-5.40) m/uL Hgb (11.4-16.0) gm/dL Hct (34.0-46.0) % MCV (80.0-100.0) fL MCH (25.0-35.0) pg MCHC (31.0-37.0) g/dL RDW (11.5-15.5) % Plt Count (150-450) k/uL Neutrophils % % Lymphocytes % % Monocytes % % Eosinophils % % Basophils % % Neutrophils # (1.3-7.7) k/uL Lymphocytes # (1.0-4.8) k/uL Monocytes # (0-1.0) k/uL Eosinophils # (0-0.7) k/uL Basophils # (0-0.2) k/uL Hypochromasia Anisocytosis Microcytosis PT (9.0-12.0) sec INR (<1.2) APTT (22.0-30.0) sec Sodium 138 (137-145) mmol/L Potassium 4.1 (3.5-5.1) mmol/L Chloride 110 H (98-107) mmol/L Carbon Dioxide 21 L (22-30) mmol/L Anion Gap 7 mmol/L BUN 8 (7-17) mg/dL Creatinine 0.57 (0.52-1.04) mg/dL Est GFR (CKD-EPI)AfAm >90 (>60 ml/min/1.73 sqM) Est GFR (CKD-EPI)NonAf >90 (>60 ml/min/1.73 sqM) Glucose 93 (74-99) mg/dL Plasma Lactic Acid [place] 0.7 (0.7-2.0) mmol/L Calcium 8.6 (8.4-10.2) mg/dL Total Bilirubin 0.1 L (0.2-1.3) mg/dL AST 23 (14-36) U/L ALT 14 (4-34) U/L Alkaline Phosphatase 64 (38-126) U/L Troponin I <0.012 (0.000-0.034) ng/mL Total Protein 6.7 (6.3-8.2) g/dL Albumin 3.8 (3.5-5.0) g/dL Amylase 40 (30-110) U/L Lipase 93 (23-300) U/L Urine Color Urine Appearance (Clear) Urine pH (5.0-8.0) Ur Specific [place] (1.001-1.035) Urine Protein (Negative) Urine Glucose (UA) (Negative) Urine Ketones (Negative) Urine Blood (Negative) Urine Nitrite (Negative) Urine Bilirubin (Negative) Urine Urobilinogen (<2.0) mg/dL Ur Leukocyte Esterase (Negative) Urine RBC (0-5) /hpf Urine WBC (0-5) /hpf Ur Squamous Epith Cells (0-4) /hpf Urine Bacteria (None) /hpf Urine Mucus (None) /hpf - Radiology Data Radiology results: report reviewed, image reviewed CT abdomen and pelvis with contrast obtained. Report was reviewed in its entirety. Impression by Dr. Flores shows no evidence of renal stone or infection. Do not see across for flank pain. Previous surgery. Mild atelectasis at the left lung base. In the report there shows calcified posterior L5-S1 lumbar disc herniation. There is no compression fracture. Bony pelvis is intact. Disposition Clinical Impression: Abdominal pain, Back pain Disposition: HOME SELF-CARE Condition: Good Instructions (If sedation given, give patient instructions): Abdominal Pain (ED), Back Pain (ED) Additional Instructions: Take medications as directed. Increase fluids. Rest but do not remain immobile for too long. Follow-up through primary care physician for recheck in 1-2 days. Return to the emergency department immediately for any new, worsening, or concerning symptoms. Prescriptions: Cyclobenzaprine [Flexeril] 10 mg PO TID #15 tab Ibuprofen [Motrin] 600 mg PO Q8HR PRN #30 tab PRN Reason: Pain Is patient prescribed a controlled substance at d/c from ED?: No Referrals: Anson Genao DO [Primary Care Provider] - 1-2 days Time of Disposition: 00:57
== END 2019-08-09 01:05 | disposition home or self-care (01) ==
LOC: EC 21:21
DX: M51.27 Other intervertebral disc displacement, lumbosacral region (principal); R10.30 Lower abdominal pain, unspecified; I48.91 Unspecified atrial fibrillation; I10 Essential (primary) hypertension; F41.9 Anxiety disorder, unspecified; F32.9 Major depressive disorder, single episode, unspecified; Z90.49 Acquired absence of other specified parts of digestive tract; Z98.84 Bariatric surgery status; Z98.890 Other specified postprocedural states; Z79.899 Other long term (current) drug therapy
CPT/HCPCS: 36415; 93005; 80053; 82150; 83605; 83690; 84484; 85025; 85610; 85730; 81001; 87086; 74177; 99284; 96374; 96375 ×2; 96376; 96361 ×2; J2405; J1885; J1170; Q9967

== ENCOUNTER → 2020-11-28 | Outpatient (CLI) | payer BC | LOC: CPPFTMAIN 07:15 | PROVIDERS: ATTEND Family Medicine | DX: R06.00 Dyspnea, unspecified (principal) | CPT/HCPCS: 94060; 94726; 94729 ==

== ENCOUNTER → 2021-01-20 | Outpatient (CLI) | payer BC ==
[2021-01-20 12:21] LABS: HCT 34.9 % (37.2-46.3); MCH 20.2 pg (27.0-32.0); MCHC 28.7 g/dL (32.0-37.0); MCV 70.6 fL (80.0-97.0); Mean Platelet Volume 9.2 fL (9.5-12.2); Platelet Count 496 X 10*3/uL (140-440); RBC 4.94 X 10*6/uL (4.10-5.20); WBC 6.46 X 10*3/uL (4.50-10.00)
[2021-01-20 12:50] LABS: Basophils # (A) 0.04 X 10*3/uL (0.00-0.10); Basophils % (A) 0.6 %; Eosinophils # (A) 0.11 X 10*3/uL (0.04-0.35); Eosinophils % (A) 1.7 %; Lymphocytes # (A) 1.87 X 10*3/uL (0.90-5.00); Lymphocytes % (A) 28.9 %; Microcytosis (M) 2+; Monocytes # (A) 0.59 X 10*3/uL (0.20-1.00); Monocytes % (A) 9.1 %; Neutrophils # (A) 3.83 X 10*3/uL (1.80-7.70); Neutrophils % (A) 59.4 %
[2021-01-20 14:20] LABS: Erythrocyte Sedimentation Rate 35 mm/Hr (0-20)
[2021-01-20 22:38] LABS: T4, Free (Free Thyroxine) 0.9 ng/dL (0.80-1.80)
[2021-01-21 00:10] LABS: Ferritin 2.6 ng/mL (10.0-291.0); Folate, Serum 19.8 ng/mL
[2021-01-21 00:11] LABS: Magnesium 1.8 mg/dL (1.5-2.4)
[2021-01-22 17:35] LABS: Zinc, Serum 71 ug/dL (60-130)
[2021-01-23 06:39] LABS: Vitamin A 38 ug/dL (38-106)
== END | disposition home or self-care (01) ==
LOC: LABWHC1 08:34
PROVIDERS: ATTEND Family Medicine
DX: L65.9 Nonscarring hair loss, unspecified (principal); M79.10 Myalgia, unspecified site; K91.2 Postsurgical malabsorption, not elsewhere classified
CPT/HCPCS: 36415; 82306; 82550; 82607; 82728; 82746; 83735; 84439; 84443; 84590; 84630; 85025; 85652

== ENCOUNTER → 2021-03-06 | Outpatient (CLI) | payer BC ==
--- NOTE | 2021-03-06 11:29 | MM ---
Reason for exam: screening (asymptomatic). Last mammogram was performed 10 years and 1 month ago. History: Family history of breast cancer in maternal grandmother at age 50. Took hormonal contraceptives for 1 year. Physical Findings: A clinical breast exam by your physician is recommended on an annual basis and results should be correlated with mammographic findings. MG Screening Mammo w CAD Bilateral CC and MLO view(s) were taken. Prior study comparison: February 12, 2011, bilateral digital screening mammo w/CAD. The breast tissue is heterogeneously dense. This may lower the sensitivity of mammography. Finding #1: There is a 6 mm round mass in the upper outer quadrant, posterior middle position. Finding #2: There are typically benign round calcifications in both breasts. Focal asymmetry right anterior middle lower quadrant and left middle upper quadrant 13mm. New finding since February 12, 2011. ASSESSMENT: Incomplete: need additional imaging evaluation, BI-RAD 0 RECOMMENDATION: Special view mammogram of both breasts. If lesion persists on supplemental views, image directed ultrasound is recommended. [facility] will attempt to contact patient to return for supplemental views and ultrasound if indicated.
== END | disposition home or self-care (01) ==
LOC: RADUSWWP 07:32
PROVIDERS: ATTEND Family Medicine
DX: Z12.31 Encounter for screening mammogram for malignant neoplasm of breast (principal); Z80.3 Family history of malignant neoplasm of breast
CPT/HCPCS: 77067

== ENCOUNTER → 2021-03-14 | Outpatient (CLI) | payer BC ==
--- NOTE | 2021-03-14 11:09 | MM ---
Reason for exam: additional evaluation requested from abnormal screening. Last mammogram was performed less than 1 month ago. History: Family history of breast cancer in maternal grandmother at age 50. Took hormonal contraceptives for 1 year. Physical Findings: Nurse did not find any significant physical abnormalities on exam. MG 3D Work Up W/Cad [place] Bilateral spot compression CC, spot compression MLO, and LM view(s) were taken. Prior study comparison: March 06, 2021, bilateral MG screening mammo w CAD. Finding: There is a typically benign 6 mm equal density (isodense), circumscribed round mass located 8 cm from the nipple in the left breast. There is no discrete abnormality including area of concern on compression views. Right side negative. These results were verbally communicated with the patient and result sheet given to the patient on 03/14/21. ASSESSMENT: Incomplete: need additional imaging evaluation, BI-RAD 0 RECOMMENDATION: Ultrasound of the left breast.
--- NOTE | 2021-03-14 11:10 | USB ---
Reason for exam: additional evaluation requested from abnormal screening. History: Family history of breast cancer in maternal grandmother at age 50. Took hormonal contraceptives for 1 year. US Breast Workup Limited LT Technologist: Andie Huston Left limited breast ultrasound including focal area of concern, retroareolar and axilla demonstrates no cystic or solid lesion seen. These results were verbally communicated with the patient and result sheet given to the patient on 03/14/21. ASSESSMENT: Negative, BI-RAD 1 RECOMMENDATION: Follow-up diagnostic mammogram of the left breast in 6 months.
== END | disposition home or self-care (01) ==
LOC: RADMAMWWP 08:48
PROVIDERS: ATTEND Family Medicine
DX: N63.41 Unspecified lump in right breast, subareolar (principal); Z80.3 Family history of malignant neoplasm of breast
CPT/HCPCS: 77062; 77066

== ENCOUNTER → 2022-09-17 | Outpatient (CLI) | payer BC ==
[2022-09-17 16:08] LABS: Basophils # (A) 0.04 X 10*3/uL (0.00-0.10); Basophils % (A) 0.5 %; Eosinophils # (A) 0.09 X 10*3/uL (0.04-0.35); Eosinophils % (A) 1.2 %; HCT 44.9 % (37.2-46.3); HGB 15.1 g/dL (12.0-15.0); Immature Grans, Automated 0.6 %; Lymphocytes # (A) 2.24 X 10*3/uL (0.90-5.00); Lymphocytes % (A) 28.8 %; MCH 30.3 pg (27.0-32.0); MCHC 33.6 g/dL (32.0-37.0); MCV 90.2 fL (80.0-97.0); Mean Platelet Volume 9.4 fL (9.5-12.2); Monocytes # (A) 0.88 X 10*3/uL (0.20-1.00); Monocytes % (A) 11.3 %; NRBC Per 100 WBC 0 /100 WBCS (0.0-0.0); Neutrophils # (A) 4.49 X 10*3/uL (1.80-7.70); Neutrophils % (A) 57.6 %; Platelet Count 383 X 10*3/uL (140-440); RBC 4.98 X 10*6/uL (4.10-5.20); RDW 13.2 % (11.5-14.5); WBC 7.79 X 10*3/uL (4.50-10.00)
[2022-09-17 16:34] LABS: Calcium 9.9 mg/dL (8.7-10.3); Ferritin 99.6 ng/mL (10.0-291.0)
== END | disposition home or self-care (01) ==
LOC: LABWHC1 11:51
PROVIDERS: ATTEND Family Medicine
DX: D64.9 Anemia, unspecified (principal); E83.51 Hypocalcemia
CPT/HCPCS: 36415; 82310; 82728; 85025